=== PATIENT | female | born 1980 | race Caucasian/White ===

== ENCOUNTER 2018-02-14 06:01 | Inpatient (IN) | payer OTHER ==
--- NOTE | 2018-02-14 09:03 | PN ---
L&D Outpatient: Visit - Reproductive Information Estimated Due Date: 02/27/18 Gestational Age: 38 Weeks and 1 Days : 4 Para: 3 - Reason for Visit Visit Reason: Pt reports ctx starting at 0300. Denies SROM - Antepartal Records Antepartal Record: Reviewed, Complicated by: - breech presentation with successful version - Patient History Patient History Significant: No Review of Systems Constitutional: Uncomfortable CV Complaint: No Respiratory: Shortness of Breath: No Gastrointestinal: No Nausea/Vomiting, Normal Bowel Movement Genitourinary: No Dysuria, No Bleeding, No Leaking Fluid Musculoskeletal: No Epigastric Pain, Contractions Neurological: No Headache, No Visual Changes Movement: Normal L&D Outpatient: Exam Vitals - Most Recent: BP- 111/65, 98.1, P-71, 100%, R-18 - Cervical Exam Cervical Exam: 3cm/ 80%/ -1 - Abdominal Exam Abdomen Exam: Non-Tender, Fundal Height Consistent with Dates - Membranes Membrane Status: Intact - Ultrasound/Biophysical Profile Ultrasound Status: Not Done EFM Findings - External Monitor Findings Baseline Heart Rate: 130 External Monitor Findings: Accelerations Present, No Pattern of Variable or Late Decelerations, Variability Moderate, Baseline Stable Contractions: Regular, Moderate, 45-90 Seconds - 5 minutes L&D Outpatient: Asses/Plan Assessment: 37 year old at 38 1/7 weeks gestation in prodromal vs early labor with no evidence of acidemia Plan: Continue Observation - Will reassess in 2 hours
--- NOTE | 2018-02-14 09:34 | PN ---
Progress Note - Progress Note Date of Service: 02/14/18 SOAP: Subjective: [Feels like contractions are "picking up" a little. Feeling ok, a little loose stool.] Objective: [VE: 3cm/80/0 UCs approx Q 2-4 min FHT 145 by doppler VSS, afebrile] Assessment: [Exam unchanged from ~0700, early vs prodromal labor] Plan: [Continue to monitor for several more hours as patient is nervous to go home d/ t history of precipitous labors ]
--- NOTE | 2018-02-14 12:26 | HP ---
General Information - General Information Maternal Age: 37 Grav: 4 Para: 3 SAB: 0 IEA: 0 Estimated Due Date: 02/27/18 Determined By: LMP Maternal Blood Type and Rh: B Positive - Results this Serology/RPR Result: Non-Reactive Rubella Result: Immune HBsAg Result: Negative HIV Result: Negative GBS Culture Result: Negative Past Medical History Delivery History: Hx Uncomplicated Vaginal Delivery Delivery History Comment: SVB X3 2009, 2011, 2013 Pertinent Past Medical History: Non-Contributory Past Medical History Comment: Eczema Pertinent Past Surgical History: See Records Past Surgical History Comment: Left elbow fixation 1985 Pertinent Family History: Non-Contributory Family History Comment: Breast CA Lung CA - Antepartal Records Antepartal Records: Reviewed, Uncomplicated Review of Systems Constitutional: Uncomfortable CV Complaint: No Respiratory: Shortness of Breath: No Gastrointestinal: No Nausea/Vomiting, Soft Stool Genitourinary: No Dysuria, No Leaking Fluid, Spotting Musculoskeletal: Contractions Neurological: No Headache, No Visual Changes Movement: Normal Exam Allergies/Adverse Reactions: Allergies No Known Allergies Allergy (Verified 10/27/13 09:43) BP 111/65 T 98.1 HR 71 RR 18 O2 100 - Measurements Height: 5 ft 8 in Weight: 155 lb Weight in lbs: [id number] Body Mass Index (BMI): 23.6 Pre- Weight: 132 lb Weight Gained This : 23 lbs and 0 ozs - Exam Breast: Breast Exam Deferred CVA: No CVA Tenderness Extremities: No Edema Heart: Normal Rhythm/Heart Sounds HEENT: No Significant Findings Lungs: Clear Bilaterally Rectal: Rectal Exam Deferred Reflexes: DTR 2+, - - no clonus Thyroid: - - WNL on entry to [facility] - Abdominal Exam Abdomen Exam: Non-Tender, Fundal Height Consistent with Dates - Ultrasound/Biophysical Profile Ultrasound Status: Not Done Targeted Exam Findings See L&D Outpatient Visit Provider Note for Findings: Yes Estimated Weight: 7.5-8lb Cervical Exam: 4cm Effacement: 90% Station: 0 Presenting Part: Vertex Membrane Status: Bulging Bleeding/Discharge: None EFM Findings - External Monitor Findings Baseline Heart Rate: 140 External Monitor Findings: Accelerations Present, No Pattern of Variable or Late Decelerations, Variability Moderate Contractions: Regular, Moderate, 45-90 Seconds Contraction Frequency: Q4-5 Assessment/Plan - Assessment IUP @ 38+1 in early labor. No evidence metabolic acidemia. IBOW - Plan Plan: Admit - Anticipate Vaginal Delivery Plan Comment: Admit to L&D. May desire nitrous oxide or BRY for pain management. Coping well for now. Encourage position changes. Anticipate SVB - Date/Time of Admission Date of Admission: 02/14/18 Time of Admission: 12:12
--- NOTE | 2018-02-14 14:32 | PN ---
Progress Note - Progress Note Date of Service: 02/14/18 SOAP: Pt feeling contractions are stronger, patient desires vaginal exam to know progress. VSS, afebrile. FHT 145 via doppler. VE: 5cm/90/0. Coping well with contractions, declines nitrous oxide for now. Will try tub. Continue to monitor.
--- NOTE | 2018-02-14 16:30 | PN ---
Progress Note - Progress Note Date of Service: 02/14/18 SOAP: Subjective: [Patient has been in tub. Contraction had spaced out but now more intense, would like exam to consider epidural] Objective: [VSS FHT 155-175 via doppler auscultation VE /+1] Assessment: [In active labor, desires epidural] Plan: [Will initiate IV, give bolus, draw labs and page anesthesia]
[2018-02-14] MEDS ORDERED: fentaNYL* 50 MCG/ML 2 ML VIAL (100 MCG VIAL) ONE (16:40)
[2018-02-14] MEDS ORDERED: OBEPIDURAL* 250 ML EPIDURAL ONE (16:40)
[2018-02-14 16:48] LABS: ABS Basophils 0.1 10^3/ul (0-0.2); ABS Eosinophils 0 10^3/ul (0-0.6); ABS Monocytes 0.7 10^3/ul (0-0.8); ABS Neutrophils 11.9 10^3/ul (1.5-7.7); ABS Nucleated RBC 0 10^3/ul; Eosinophil % 0.1 % (0-6); Hematocrit 37 % (35-47); Hemoglobin 12.2 g/dl (12.0-16.0); Lymphocyte % 13.3 % (25-47); Mean Corpuscular HGB Conc 33 g/dl (31-36); Mean Corpuscular Hemoglobin 27 pg (27-31); Mean Corpuscular Volume 81 fL (80-97); Mean Platelet Volume 10.5 um3 (7.4-10.4); Nucleated Red Blood Cells % 0; Platelet Count 156 10^3/ul (150-450); Red Blood Count 4.54 10^6/ul (4.00-5.40); Red Cell Distribution Width 14 % (10.5-15); White Blood Count 14.7 10^3/ul (3.5-10.8)
[2018-02-14] MEDS ORDERED: Sodium Citrate/Citric Acid* 15 ML UDC PO PRN (18:29)
[2018-02-14] MEDS ORDERED: Phenylephrine IV* 40 MCG/ML 10 ML SYRINGE IV PUSH PRN ×2 (18:29)
[2018-02-14] MEDS ORDERED: Famotidine TAB* 20 MG PO PRN (18:29)
[2018-02-14] MEDS ORDERED: OBEPIDURAL* 250 ML EPIDURAL SCH (19:00)
--- NOTE | 2018-02-14 19:28 | PN ---
Progress Note - Progress Note Date of Service: 02/14/18 SOAP: Subjective: [Patient fairly comfortable with epidural. Pump not working so Dr Toal repeated bolus and can repeat hourly PRN. Patient is satisfied with the pain relief. PARQ discussion of AROM; patients agree.] Objective: [VSS, afebrile FHT 130, +accels, no decels, mod variability VE 8cm/100/+1] Assessment: [Active labor, AROM to clear fluid] Plan: [Encourage position changes, anticipate SVB]
[2018-02-14] MEDS ORDERED: Witch Hazel PAD* JAR TOPICAL PRN (22:29)
[2018-02-14] MEDS ORDERED: Glycerin ADULT SUPP PR PRN (22:29)
[2018-02-14] MEDS ORDERED: Dibucaine 1% 28.35 GM TUBE PR PRN (22:29)
[2018-02-14] MEDS ORDERED: Acetaminophen TAB* 325 MG PO PRN (22:29)
--- NOTE | 2018-02-14 22:50 | PROCNOTE ---
[facility] OB: Delivery Note - Nursery Level of Nursery: Regular/Bedside - Perineum Perineal Injury: 1st Degree Perineal Injury Comment: Repaired with 3-0 Rapide Perineal Repair: By Delivering Practioner - Additional Delivery Notes Additional Delivery Notes: Pt admitted in early labor with steady progress to complete. Epidural received as requested with some relief. Pump not functioning. Per Dr Milton, able to bolus @ hourly intervals for adequate relief. LOL 15'6", pushed 1 hr 28 min. Baby born OA to NILSA in hands and knees. Shoulders followed with maternal efforts. Nuchal cord X 1, unwrapped after delivery. Passed through mothers legs to abdomen when she laid back on bed. Cord doubly clamped and cut by FOB once pulsations ceased. Placenta delivered with gentle cord traction @ 2206. Fundus firm to massage, minimal bleeding noted. Repair as above. Baby at breast to initiate . Mother and baby stable.
[2018-02-15] MEDS: Ibuprofen TAB* 600 MG PO PRN ×3 (00:20→17:29)
[2018-02-15 06:56] LABS: ABS Basophils 0 10^3/ul (0-0.2); ABS Eosinophils 0 10^3/ul (0-0.6); ABS Lymphocytes 1.8 10^3/ul (1.0-4.8); ABS Monocytes 0.7 10^3/ul (0-0.8); ABS Neutrophils 10.6 10^3/ul (1.5-7.7); ABS Nucleated RBC 0 10^3/ul; Eosinophil % 0.1 % (0-6); Hematocrit 30 % (35-47); Hemoglobin 10.4 g/dl (12.0-16.0); Lymphocyte % 13.5 % (25-47); Mean Corpuscular HGB Conc 35 g/dl (31-36); Mean Corpuscular Hemoglobin 28 pg (27-31); Mean Corpuscular Volume 81 fL (80-97); Mean Platelet Volume 11.2 um3 (7.4-10.4); Nucleated Red Blood Cells % 0; Platelet Count 123 10^3/ul (150-450); Red Blood Count 3.74 10^6/ul (4.00-5.40); Red Cell Distribution Width 13 % (10.5-15); White Blood Count 13.1 10^3/ul (3.5-10.8)
[2018-02-15] MEDS ORDERED: Ferrous Gluconate TAB* 324 MG TAB PO SCH (09:00)
[2018-02-15] MEDS: Docusate CAP* 100 MG PO SCH ×3 (09:03→22:01)
[2018-02-16] MEDS: Ibuprofen TAB* 600 MG PO PRN ×2 (00:14→06:54)
[2018-02-16 08:32] VITALS: BP 96/61
== END 2018-02-16 10:00 | disposition home or self-care (01) | DRG 775 ==
LOC: MCHOBOUT 06:01 → MCHOB 12:12
PROVIDERS: ADMIT Midwife; ATTEND Midwife
PROC: 10E0XZZ Delivery of Products of Conception, External Approach (ICD-10-PCS; principal; 2018-02-14)
PROC: 0HQ9XZZ Repair Perineum Skin, External Approach (ICD-10-PCS; 2018-02-14)
PROC: 10907ZC Drainage of Amniotic Fluid, Therapeutic from Products of Conception, Via Natural or Artificial Opening (ICD-10-PCS; 2018-02-14)
DX: O60.23X1 Term delivery with preterm labor, third trimester, fetus 1 (principal); O70.0 First degree perineal laceration during delivery; Z3A.38 38 weeks gestation of pregnancy; Z37.0 Single live birth
CPT/HCPCS: 36415; 85025; 86850; 86900; 86901; A9270-GY; J3010